=== PATIENT | male | born 1965 | race Caucasian/White ===

== ENCOUNTER → 2024-04-13 06:24 | Day surgery (SDC) | payer BC, SELFPAY | LOC: GI 06:24 | PROVIDERS: ATTENDING PHYSICIAN Internal Medicine Gastroenterology; FAMILY PHYSICIAN Family Medicine | DX: Z12.11 Encounter for screening for malignant neoplasm of colon (principal); K64.8 Other hemorrhoids; D12.5 Benign neoplasm of sigmoid colon; D12.4 Benign neoplasm of descending colon; D12.0 Benign neoplasm of cecum; D12.2 Benign neoplasm of ascending colon | CPT/HCPCS: 45385; 45380; 88305 ==

== ENCOUNTER → 2025-01-03 09:50 | Outpatient (REF) | payer BC, SELFPAY | LOC: EMG 09:50 | PROVIDERS: ATTENDING PHYSICIAN Family Medicine | DX: R20.2 Paresthesia of skin (principal); M79.631 Pain in right forearm | CPT/HCPCS: 95886; 95909 ==